=== PATIENT | male | born 1990 | race Caucasian/White ===

== ENCOUNTER 2019-11-13 19:23 | Emergency (ER) | payer OTHER ==
[~2019-11-13] VITALS: Ht 188 cm; Wt 113.1 kg
[2019-11-13] MEDS ORDERED: ACETAMINOPHEN TAB 650MG DOSE (2X325MG) PO ONE (20:15)
--- NOTE | 2019-11-13 20:25 | REPVR ---
PROCEDURE INFORMATION: Exam: XR Right Tibia and Fibula Exam date and time: 11/13/2019 8:17 PM Age: 29 years old Clinical indication: Other: Calf pain; Additional info: Trauma TECHNIQUE: Imaging protocol: XR Right tibia and fibula. Views: 2 views. COMPARISON: No relevant prior studies available. FINDINGS: Bones/joints: Normal. Soft tissues: Normal. IMPRESSION: No acute findings. Electronically signed by: Lico Potter On 11/13/2019 20:24:56 PM
--- NOTE | 2019-11-13 21:03 | REPVR ---
PROCEDURE INFORMATION: Exam: US Duplex Right Lower Extremity Veins, Limited Exam date and time: 11/13/2019 8:56 PM Age: 29 years old Clinical indication: Pain; Leg, lower; Right; Additional info: R calf pain TECHNIQUE: Imaging protocol: Real-time Duplex ultrasound of the Right Lower Extremity with 2-D patton scale, color Doppler flow and spectral waveform analysis with image documentation. Limited exam was focused on the right lower extremity veins. COMPARISON: No relevant prior studies available. FINDINGS: Right deep veins: Unremarkable. The common femoral, femoral, proximal profunda femoral and popliteal veins are patent without thrombus. Normal Doppler waveforms. Normal compressibility and/or augmentation response. Right superficial veins: Unremarkable. Saphenofemoral junction is patent without thrombus. Soft tissues: Unremarkable. IMPRESSION: No evidence of deep vein thrombosis. Electronically signed by: Lico Potter On 11/13/2019 21:02:50 PM
[2019-11-13 21:35] VITALS: BP 146/83
== END 2019-11-13 21:35 | disposition home or self-care (01) ==
LOC: M ED 19:23
DX: M79.661 Pain in right lower leg (principal)